=== PATIENT | female | born 1955 | race African-American/Black ===

== ENCOUNTER 2018-11-05 21:23 | Emergency (ER) | payer BC ==
[~2018-11-05] VITALS: Ht 157.5 cm; Wt 93.0 kg
[2018-11-05] MEDS ORDERED: KETOROLAC 60MG/2ML VIAL IM ONE (22:30)
[2018-11-05] MEDS ORDERED: MORPHINE SULFATE 10 MG/ML CPJ IM ONE (22:30)
[2018-11-05] MEDS ORDERED: ONDANSETRON 4MG ODT PO ONE (22:30)
[2018-11-05] MEDS ORDERED: ONDANSETRON HCL 4MG/2ML INJ IM ONE (23:30)
[2018-11-06] MEDS ORDERED: KETOROLAC 15MG/ML VIAL IV ONE (02:00)
[2018-11-06] MEDS ORDERED: HYDROCODONE/ACETAMINOPHEN 5/325MG TABLET PO ONE (02:00)
[2018-11-06 06:05] VITALS: BP 132/88
== END 2018-11-06 06:10 | disposition home or self-care (01) ==
LOC: ER 21:23
DX: S22.21XA Fracture of manubrium, initial encounter for closed fracture (principal); Z98.890 Other specified postprocedural states; Z98.51 Tubal ligation status; V43.52XA Car driver injured in collision with other type car in traffic accident, initial encounter; Y93.89 Activity, other specified; Y92.89 Other specified places as the place of occurrence of the external cause; Y99.8 Other external cause status
CPT/HCPCS: 71250; 72125; 93005; 96372; 99284; J1885; J2270; J2405; Q0162; Z7610

== ENCOUNTER 2022-07-05 19:20 | Emergency (ER) | payer BC, MEDICARE ==
[~2022-07-05] VITALS: Ht 157.5 cm; Wt 94.6 kg
[2022-07-05] MEDS ORDERED: IBUPROFEN 600MG TABLET PO ONE (20:45)
[2022-07-05] MEDS ORDERED: TETANUS, DIPHTHERIA, PERTUSSIS VAC/PF 0.5ML (>10YR OLD) IM ONE (20:45)
[2022-07-05 20:54] VITALS: BP 149/120
[2022-07-05] MEDS ORDERED: IBUP-2029 MT (23:03)
== END 2022-07-05 23:31 | disposition home or self-care (01) ==
LOC: ER 19:38
DX: M25.531 Pain in right wrist (principal); M25.562 Pain in left knee
CPT/HCPCS: 73130; 73560; 90471; 90715; 99284